=== PATIENT | female | born 1945 ===

== ENCOUNTER 2018-12-21 16:10 | Observation (INO) | payer MEDICARE, MEDICAID ==
--- NOTE | 2018-12-21 17:50 | CT ---
Date of service: 12/21/2018 PROCEDURE: CT NECK WITHOUT CONTRAST HISTORY: fish bone/FB stuck in throat COMPARISON: None available. TECHNIQUE: CT of the neck without intravenous contrast. Coronal and sagittal reformats generated. Radiation dose: Total exam DLP = 234.72 mGy-cm. This CT exam was performed using one or more of the following dose reduction techniques: Automated exposure control, adjustment of the mA and/or kV according to patient size, and/or use of iterative reconstruction technique. FINDINGS: NASOPHARYNX: Within normal limits. SUPRAHYOID NECK: There is a long linear at least 3.5 cm radiopaque foreign body in the right piriform sinus extending into the right parapharyngeal space. The oropharynx, oral cavity, parapharyngeal space and retropharyngeal space are grossly normal. INFRAHYOID NECK: Unremarkable larynx, hypopharynx, and supraglottic space. Vocal cords intact. MASS: None. GLANDS: Parotid and submandibular glands unremarkable. Normal size thyroid gland, without nodule. LYMPH NODES: Normal. No lymphadenopathy. CERVICAL SPINE: No fracture or focal lesion. Mild multilevel degenerative disc disease. OTHER FINDINGS: None. IMPRESSION: Findings are consistent with at least 3.5 cm fish bone in the right piriform sinus extending into the right parapharyngeal space.
--- NOTE | 2018-12-21 18:26 | C.PDOC ---
History Of Present Illness Patient presents to ED c/o foreign body sensation in her throat since eating fish at 2pm today. She thinks she may have a fish bone stuck in her throat. She denies SOB, cough, chest pain, fever. PMHx: HTN, hyperlipidemia, gastritis, arthritis Time Seen by Provider: 12/21/18 16:24 Chief Complaint (Nursing): ENT Problem History Per: Patient History/Exam Limitations: no limitations Current Symptoms Are (Timing): Still Present Quality Of Discomfort: "Pain" (foreign body sensation) Severity: Moderate Past Medical History Reviewed: Historical Data, Nursing Documentation, Vital Signs Vital Signs: Last Vital Signs Temp 98.3 F 12/21/18 16:13 Pulse 76 12/21/18 16:13 Resp 16 12/21/18 16:13 BP 110/53 L 12/21/18 16:13 Pulse Ox 97 12/21/18 16:13 - Medical History PMH: Arthritis, Gastritis, HTN, Hypercholesterolemia Surgical History: Endoscopy - [facility] Procedures CYSTOSCOPY NEC (04/30/15) TRANSURETH BLADD BIOPSY (04/30/15) Family History: States: No Known Family Hx - Social History Hx Alcohol Use: No Hx Substance Use: No - Immunization History Hx Tetanus Toxoid Vaccination: No Hx Influenza Vaccination: No Review Of Systems Constitutional: Negative for: Fever, Chills ENT: Positive for: Throat Pain (FB sensation). Negative for: Nose Congestion Cardiovascular: Negative for: Chest Pain, Palpitations Respiratory: Negative for: Cough, Shortness of Breath Gastrointestinal: Negative for: Nausea, Vomiting, Abdominal Pain Skin: Negative for: Rash Physical Exam - Physical Exam Appears: Well, Non-toxic, No Acute Distress, Other (speaking in full sentences) Head: Normacephalic Eye(s): bilateral: Normal Inspection Nose: Normal Oral Mucosa: Moist Tongue: Normal Appearing, No Swelling Lips: Normal Appearing, No Swelling Throat: Normal, No Erythema, No Exudate, No Drooling, Other (uvula midline and normal in appearance ) Lymphatic: No Adenopathy (no cervical adenopathy) Chest: Symmetrical, No Subcutaneous Emphysema Cardiovascular: Rhythm Regular Respiratory: Normal Breath Sounds, No Rales, No Rhonchi, No Wheezing Gastrointestinal/Abdominal: Normal Exam, Bowel Sounds, Soft, No Tenderness Neurological/Psych: Oriented x3 ED Course And Treatment O2 Sat by Pulse Oximetry: 97 (ra) Pulse Ox Interpretation: Normal - Radiology CXR: Interpreted by Me, Viewed By Me CXR Interpretation: Yes: No Acute Disease. No: Infiltrates - CT Scan/US CT SOFT TISSUE NECK Other Rad Studies (CT/US): Read By Radiologist, Radiology Report Reviewed CT/US Interpretation: Accession No. : [id number]. Patient Name / ID : CHIRAG MARIO / [id number]. Exam Date : 12/21/2018 17:27:48 ( Approved ). Study Comment : Sex / Age : F / [id number]. Creator : Kiana Vega. Dictator : Miriam Moreno MD. Residential Tech : Door Opener : Miriam Moreno MD. Approver2 : Report Date : 12/21/2018 17:33:47. My Comment : . Date of service: 12/21/2018. PROCEDURE: CT NECK WITHOUT CONTRAST. HISTORY: fish bone/FB stuck in throat. COMPARISON: None available. TECHNIQUE: CT of the neck without intravenous contrast. Coronal and sagittal reformats generated. Radiation dose: Total exam DLP = 234.72 mGy-cm. This CT exam was performed using one or more of the following dose reduction techniques: Automated exposure control, adjustment of the mA and/or kV according to patient size, and/or use of iterative reconstruction technique. FINDINGS: NASOPHARYNX: Within normal limits. SUPRAHYOID NECK: There is a long linear at least 3.5 cm radiopaque foreign body in the right piriform sinus extending into the right parapharyngeal space. The oropharynx, oral cavity, parapharyngeal space and retropharyngeal space are grossly normal. INFRAHYOID NECK: Unremarkable larynx, hypopharynx, and supraglottic space. Vocal cords intact. MASS: None. GLANDS: Parotid and submandibular glands unremarkable. Normal size thyroid gland, without nodule. LYMPH NODES: Normal. No lymphadenopathy. CERVICAL SPINE: No fracture or focal lesion. Mild multilevel degenerative disc disease. OTHER FINDINGS: None. IMPRESSION: Findings are consistent with at least 3.5 cm fish bone in the right piriform sinus extending into the right parapharyngeal space. Progress Note: Blood work, CT soft tissue neck ordered and reviewed. 6:20pm- Call placed to Dr. Castellon, mailbox full. 6:35pm- Spoke with Dr. Castellon, will take patient to OR tonight. Disposition - Disposition
--- NOTE | 2018-12-21 19:02 | RAD ---
HISTORY: preop COMPARISON: Chest x-ray performed 07/19/18 TECHNIQUE: Chest, one view. FINDINGS: LUNGS: Hyperinflation may be seen in the setting of COPD. Emphysematous changes. No focal consolidation. Please note that chest x-ray has limited sensitivity for the detection of pulmonary masses. PLEURA: No significant pleural effusion identified. No definite pneumothorax . CARDIOVASCULAR: Heart size appears within normal limits. Mild atherosclerotic calcification present. OSSEOUS STRUCTURES: Degenerative changes of the spine. VISUALIZED UPPER ABDOMEN: Unremarkable. OTHER FINDINGS: None. IMPRESSION: COPD/emphysema. No focal consolidation.
[2018-12-21 19:03] LABS: BASO % 0.3 % (0.0-2.0); EOS % 0.7 % (0.0-4.0); HEMOGLOBIN 13.1 g/dL (11.0-16.0); LYMPH # 1.3 K/uL (1.0-4.3); MEAN CELL VOLUME 100.9 fL (81.0-99.0); MEAN CORPUSCULAR HEMOGLOBIN 33.4 pg (27.0-31.0); MEAN CORPUSCULAR HGB CONC 33.2 g/dL (33.0-37.0); MEAN PLATELET VOLUME 8.7 fL (7.2-11.7); MONO # 0.4 K/uL (0.0-0.8); MONO % 8.5 % (0.0-10.0); NEUT # 3.1 K/uL (1.8-7.0); NEUT % 63.5 % (50.0-75.0); NRBC % 0.1 % (0.0-2.0); RBC 3.91 Mil/uL (3.80-5.20); RED CELL DISTRIBUTION WIDTH 12.7 % (11.5-14.5); WHITE BLOOD COUNT 4.8 K/uL (4.8-10.8)
[2018-12-21 19:11] LABS: INR 1.1; PROTHROMBIN TIME 11.8 SECONDS (9.7-12.2)
[2018-12-21 19:17] LABS: ALB/GLOB RATIO 1.7 (1.0-2.1); ALBUMIN 4.1 g/dL (3.5-5.0); ALT/SGPT 39 U/L (9-52); AST/SGOT 46 U/L (14-36); BLOOD UREA NITROGEN 17 mg/dL (7-17); CALCIUM 9.3 mg/dl (8.6-10.4); GFR NON-AFRICAN AMERICAN > 60
[2018-12-21] MEDS ORDERED: Dexamethasone 4 mg/1 ml ONE (21:45)
[2018-12-21] MEDS ORDERED: ceFAZolin 1 gm in NS 2 GM/200 ML BAG IVPB ONE (21:45)
[2018-12-21] MEDS ORDERED: Midazolam 2 MG/2 ML VIAL ONE (22:03)
[2018-12-21] MEDS ORDERED: Propofol 10 mg/ml Inj (20 ML) ONE (22:18)
[2018-12-21] MEDS ORDERED: HYDROmorphone 0.5 mg/0.5 ml ISec IVP PRN (22:45)
[2018-12-21] MEDS ORDERED: HYDROmorphone 0.5 mg/0.5 ml ISec ONE (22:50)
[2018-12-21 23:55] VITALS: RESP 20
--- NOTE | 2018-12-22 02:00 | OP ---
PROCEDURE DATE: 12/21/2018 PREOPERATIVE DIAGNOSIS: Foreign body in the throat. POSTOPERATIVE DIAGNOSIS: Foreign body in the throat. PROCEDURE: Direct laryngoscopy with removal of foreign body. SIGNIFICANT FINDINGS: Foreign body in the throat on the right. DESCRIPTION OF PROCEDURE: The patient was brought into the room, placed in supine position. Anesthesia was initiated through face mask. I took a look with Mac blade and was able to visualize the fish bone; however, it was too anterior to remove with graspers. Therefore, the patient was intubated. Shoulder roll was placed. Neck extended. The patient was draped in the usual manner. Direct laryngoscope was inserted into the cavity after tooth guard was placed over the upper teeth to protect them. Direct laryngoscope was passed through the oropharynx and hypopharynx. The pharyngeal martel, base of tongue, vallecula, epiglottis, AE folds, false cords, true cords, pyriform sinuses were brought into view. Foreign body was also in the right aspect of the hypopharynx, and graspers were used to grab the foreign body and remove it. Bleeding was controlled with time. Direct laryngoscope was removed. The patient was taken off the anesthesia and taken to the recovery room in stable manner. Jose Castellon MD MTDJovanna
[2018-12-22 08:26] VITALS: BP 116/69; PULSE 78; TEMP 98.3; O2SAT 97
--- NOTE | 2018-12-22 09:43 | CP.PCM.PN ---
Subjective - Date & Time of Evaluation Date of Evaluation: 12/22/18 Time of Evaluation: 09:43 - Subjective Subjective: mild throat pain ok po d/c home Objective - Vital Signs/Intake and Output Vital Signs (last 24 hours): Temp Pulse Resp BP Pulse Ox 98.3 F 78 20 116/69 97 12/22/18 07:00 12/22/18 07:00 12/22/18 07:00 12/22/18 07:00 12/22/18 07:00 Intake and Output: 12/22/18 12/22/18 06:59 18:59 Intake Total 600 Balance 600 - Labs Labs: 12/21/18 18:53 12/21/18 18:53 PT 11.8 SECONDS (9.7-12.2) 12/21/18 18:53 INR 1.1 12/21/18 18:53 APTT 30 SECONDS (21-34) 12/21/18 18:53
--- NOTE | 2018-12-25 13:01 | CARD ---
APPROVED REPORT Date of service: 12/21/2018 EKG Measurement Heart [id number] <Conclusion> Normal sinus rhythm Normal ECG
== END 2018-12-22 11:20 | disposition home or self-care (01) ==
LOC: C.3T 16:10 → C.ER 16:10 → C.SDS 18:42 → UNDOADMOB 21:55 → C.3T 21:55
PROVIDERS: ADMIT Otolaryngology; ATTEND Otolaryngology
DX: T17.208A Unspecified foreign body in pharynx causing other injury, initial encounter (principal); I10 Essential (primary) hypertension; E78.5 Hyperlipidemia, unspecified; E78.00 Pure hypercholesterolemia, unspecified
CPT/HCPCS: 31530; 36415; 70490; 71045; 80053; 85025; 85610; 85730; 86850; 86900; 99285; G0378; J0690; J1100; J1170; J2250; J2704